=== PATIENT | male | born 1995 | race Caucasian/White ===

== ENCOUNTER 2019-05-27 07:01 | Day surgery (SDC) | payer OTHER ==
[2019-05-19 13:28] VITALS: BMI 28.3
[~2019-05-27 07:01] MED LIST: HYDROmorphone 0.5 MG/0.5 ML SYRINGE IVP PRN; LACTATED RINGERS 1,000 ML IV SCH; ONDANSETRON 4 MG/2 ML VIAL IVP PRN; Pre Op ABX Message 1 EACH MISC MISCELLANE ONE
--- NOTE | 2019-05-27 07:28 | P.GSHP ---
History of Present Illness H&P Date: 05/27/19 CHIEF COMPLAINT: Neck mass HISTORY OF PRESENT ILLNESS: The patient is a 23 year-old male with history of mass along the left neck. He presents today for surgical excision. PAST MEDICAL HISTORY: Please see list. PAST SURGICAL HISTORY: Please see list. MEDICATIONS: Please see list. ALLERGIES: Please see list. SOCIAL HISTORY: No illicit drug use FAMILY HISTORY: No reports of Crohn disease or ulcerative colitis. REVIEW OF ORGAN SYSTEMS: CONSTITUTIONAL: No reports of fevers or chills. GI: Denies any blood in stools or constipation. PHYSICAL EXAM: VITAL SIGNS: Stable SKIN: Well perfused. Good skin turgor. 2 cm lesion overlying the left neck Musculoskeletal: No clubbing cyanosis or edema GENERAL: Well developed and in no acute distress. Pleasant. HEENT: No sclera icterus. Extraocular movements grossly intact. Moist buccal mucosa. Head is atraumatic, normocephalic. Hears conversational speech. No nasal drainage. NECK: Supple without lymphadenopathy. No JV distention. CHEST: Non-labored respirations and equal bilateral excursions. CARDIOVASCULAR: Regular rate and rhythm. Palpable 2+ radial pulses. ABDOMEN: Soft. Non-tender. Nondistended. NEUROLOGIC: No focal or lateralizing signs. PSYCH: Appropriate affect. Alert and oriented to person, place and time. ASSESSMENT: 1. Left neck mass PLAN: 1. Will proceed of excision of left neck mass 2. DVT prophylaxis. 3. Antibiotic prophylaxis. 4. Time of recovery, at least one week. Past Medical History Past Medical History: Hypertension, Osteoarthritis (OA) Additional Past Medical History / Comment(s): ABDOMINAL HERNIA History of Any Multi-Drug Resistant Organisms: None Reported Past Surgical History: Ear Surgery, Hernia Repair Additional Past Surgical History / Comment(s): EAR TUBES A CHILD, WISDOM TEETH. Past Anesthesia/Blood Transfusion Reactions: Motion Sickness Past Psychological History: No Psychological Hx Reported Smoking Status: Current every day smoker Past Alcohol Use History: Occasional Additional Past Alcohol Use History / Comment(s): Has been smoking 8 yrs, 1 PPD. Past Drug Use History: None Reported - Past Family History Mother Family Medical History: No Reported History Medications and Allergies Home Medications Medication Instructions Recorded Confirmed Type Ibuprofen [Motrin Ib] 400 mg PO Q6H PRN 05/19/19 05/19/19 History Lisinopril [Zestril] 10 mg PO DAILY 05/19/19 05/27/19 History Allergies Allergy/AdvReac Type Severity Reaction Status Date / Time No Known Allergies Allergy Verified 05/19/19 13:29
[2019-05-27] MEDS ORDERED: LIDOCAINE 1% 20 ML VIAL (10MG/ML) FOR IV START INTRADERMA ONE (07:32)
[2019-05-27] MEDS ORDERED: PROPOFOL 10 MG/ML 20 ML VIAL IV ONE (07:52)
[2019-05-27] MEDS ORDERED: MIDAZOLAM 2 MG/2 ML VIAL ONE (07:52)
[2019-05-27] MEDS ORDERED: KETAMINE 10 MG/ML 20 ML VIAL ONE (07:52)
[2019-05-27] MEDS ORDERED: LIDOCAINE 1% INJ 10MG/ML (20 ML MDV) ONE (07:52)
[2019-05-27] MEDS ORDERED: fentaNYL (PF) 50 MCG/ML 2 ML AMP ONE (07:52)
[2019-05-27] MEDS ORDERED: SODIUM CHLORIDE 0.9% 50 ML with ceFAZolin 2,000 MG IV ONE ×2 (08:14)
[2019-05-27] MEDS ORDERED: LIDOCAINE 1%-EPI 1:100,000 20 ML VIAL SQ ONE (08:22)
--- NOTE | 2019-05-27 09:08 | P.OP ---
Date of Procedure: 05/27/19 Description of Procedure: SURGEON: IVETH FRANKS MD [employer]PATCHER SERVICE OR WORK: None. PREOPERATIVE DIAGNOSES: 1. Left posterior neck mass, 5 cm 2. Hypertensive heart disease 3. Tobacco abuse POSTOPERATIVE DIAGNOSES: 1. Deep subcutaneous to fascia left posterior neck mass, 5 x 2 cm 2. Hypertensive heart disease 3. Tobacco abuse PROCEDURES PERFORMED: 1. Excision of deep subcutaneous to fascia posterior left neck mass, 5 x 2 cm 2. Intermediate closure left posterior shoulder incision, 6 -cm Anesthesia: GETA, local Estimated Blood Loss (ml): 10 Pathology: other (neck mass) Condition: stable Disposition: same day COMPLICATIONS: None. FINDINGS: 1. Complex solid mass left posterior neck deep subcutaneous to the fascia, 5 x 2 cm INDICATIONS: The patient is a 23-year-old male who presents with symptomatic left posterior neck tumor. Benefits and risks of surgical intervention were described including bleeding, infection. Informed consent was obtained. DESCRIPTION OR PROCEDURE: In the preoperative area, the area of concern was marked with indelible marker. Patient was brought into the operating room. After general induction, his neck was turned to the right shoulder. The left neck and left shoulder were prepped and draped in a standard sterile fashion with ChloraPrep. Timeout protocol was confirmed with the surgical team regarding the patient's name, procedure to be performed including preoperative medications. DVT prophylaxis was confirmed with SCDs. A field block was placed of the left shoulder. At the neck, the mass was measured and a transverse elliptical 5 x 2 cm posterior incision made incorporating the entirety of the mass using #15 blade. Electro-Bovie cautery including sharp dissection was used to circumferential dissect the tumor that extended into the fascia of the left neck at the posterior triangle. Dissection extended into the fascia. The tumor was removed in total. Hemostasis was excellent. 3-0 Vicryl was placed for the deep subcutaneous tissue followed by 4-0 Monocryl for the dermis in a running subcuticular fashion. The skin was cleansed and Exofin tape with liquid was applied. The incision was covered with Optifoam dressing. Local anesthetic was placed. At the end of the procedure, needle, sponge, and instrument count was verified correct by director medical surgical. Operative findings was shared with the patient's family who were pleased with the level of care. Plan - Discharge Summary Discharge Rx Participant: No New Discharge Prescriptions: New Ibuprofen [Motrin] 600 mg PO Q8HR PRN #30 tab PRN Reason: Pain Acetaminophen Tab [Tylenol Tab] 500 mg PO Q6H PRN #30 tablet PRN Reason: Pain No Action Lisinopril [Zestril] 10 mg PO DAILY Ibuprofen [Motrin Ib] 400 mg PO Q6H PRN PRN Reason: Pain Discharge Medication List Ibuprofen [Motrin Ib] 400 mg PO Q6H PRN 05/19/19 [History] Lisinopril [Zestril] 10 mg PO DAILY 05/19/19 [History] Acetaminophen Tab [Tylenol Tab] 500 mg PO Q6H PRN #30 tablet 05/27/19 [Rx] Ibuprofen [Motrin] 600 mg PO Q8HR PRN #30 tab 05/27/19 [Rx] Follow up Appointment(s)/Referral(s): Iveth Franks MD [STAFF PHYSICIAN] - 06/01/19 Patient Instructions/Handouts: Excision of Skin Lesion (DC) Activity/Diet/Wound Care/Special Instructions: DO NOT REMOVE DRESSING. KEEP DRESSING DRY. Apply ice to incision for swelling and pain. Discharge Disposition: HOME SELF-CARE
[2019-05-27 09:09] VITALS: TEMP 96.9
[2019-05-27 09:30] VITALS: RESP 18
[2019-05-27 09:45] VITALS: BP 152/92; PULSE 79
== END 2019-05-27 10:01 | disposition home or self-care (01) ==
LOC: OR 07:01
PROVIDERS: ATTEND Surgery Plastic and Reconstructive Surgery
DX: L72.0 Epidermal cyst (principal); I11.9 Hypertensive heart disease without heart failure; F17.210 Nicotine dependence, cigarettes, uncomplicated; M19.90 Unspecified osteoarthritis, unspecified site; K08.89 Other specified disorders of teeth and supporting structures; Z98.890 Other specified postprocedural states; Z87.898 Personal history of other specified conditions; Z79.1 Long term (current) use of non-steroidal anti-inflammatories (NSAID); Z79.899 Other long term (current) drug therapy
CPT/HCPCS: 11426; J2250; J2405; J0690; J2001; J3010; J2704; 88304

== ENCOUNTER 2019-07-19 04:46 | Emergency (ER) | payer OTHER ==
[2019-07-19 05:04] VITALS: RESP 18
[2019-07-19 05:21] LABS: Basophils # (A) 0.1 k/uL (0-0.2); Basophils % (A) 0 %; Eosinophils # (A) 0.2 k/uL (0-0.7); Eosinophils % (A) 1 %; HCT 38.9 % (39.0-53.0); HGB 12.5 gm/dL (13.0-17.5); Lymphocytes # (A) 2.3 k/uL (1.0-4.8); Lymphocytes % (A) 14 %; MCH 28.2 pg (25.0-35.0); MCHC 32.3 g/dL (31.0-37.0); MCV 87.3 fL (80.0-100.0); Mean Platelet Volume 7.8; Monocytes # (A) 1.1 k/uL (0-1.0); Monocytes % (A) 6 %; Neutrophils # (A) 13.1 k/uL (1.3-7.7); Neutrophils % (A) 77 %; Platelet Count 392 k/uL (150-450); RBC 4.45 m/uL (4.30-5.90); RDW 12.3 % (11.5-15.5); WBC 16.9 k/uL (3.8-10.6)
[2019-07-19 05:32] LABS: ALT 45 U/L (4-49); AST 21 U/L (17-59); African American GFR (CKD) >90 (>60 ml/min/1.73 sqM); Albumin 4.5 g/dL (3.5-5.0); Alkaline Phosphatase 115 U/L (38-126); Anion Gap 11 mmol/L; Blood Urea Nitrogen 17 mg/dL (9-20); Calcium 9.8 mg/dL (8.4-10.2); Carbon Dioxide 22 mmol/L (22-30); Chloride 105 mmol/L (98-107); Glucose 104 mg/dL (74-99); Magnesium 2.2 mg/dL (1.6-2.3); Non-African American GFR(CKD) >90 (>60 ml/min/1.73 sqM); Potassium 4.4 mmol/L (3.5-5.1); Sodium 138 mmol/L (137-145); Total Bilirubin 0.6 mg/dL (0.2-1.3)
[2019-07-19 05:37] LABS: Partial Thromboplastin Time 26.1 sec (22.0-30.0)
--- NOTE | 2019-07-19 05:41 | XR ---
EXAMINATION TYPE: XR chest 2V DATE OF EXAM: 07/19/2019 COMPARISON: 02/19/2016 HISTORY: Chest pain TECHNIQUE: 2 views FINDINGS: Heart is normal. Lungs are clear. Diaphragm is normal. Bony thorax appears normal. IMPRESSION: Normal chest. No change.
[2019-07-19 05:44] LABS: D-Dimer 1.73 mg/L FEU (<0.60)
--- NOTE | 2019-07-19 06:28 | CT ---
EXAMINATION TYPE: CT chest angio for PE DATE OF EXAM: 07/19/2019 COMPARISON: None HISTORY: PLeuritic pain CT DLP: 510.9 mGycm Automated exposure control for dose reduction was used. CONTRAST: Performed with IV Contrast, patient injected with 100 mL of Isovue 370. There are 3-D post processed images. The lungs are clear of infiltrate. There is no evidence of a pulmonary mass. There is no pleural effu tracie. Heart size is normal. There is small pericardial effusion. There is no mediastinal adenopathy. Thoracic aorta is intact. There is no aneurysm or dissection. There is normal contrast opacification of the pulmonary arteries. I see no filling defect. The thorac ic spine is intact. I see no bony destructive process. Sternum is intact. IMPRESSION: No evidence of pulmonary embolism. Mild pericardial effusion. No evidence of any significant lung dis ease. There is minimal pleural thickening left posterior lung base.
[2019-07-19 06:47] VITALS: BP 140/76; PULSE 80; TEMP 97.6
--- NOTE | 2019-07-19 07:16 | ED ---
Chest Pain HPI - General Chief Complaint: Chest Pain Stated Complaint: Chest Pain Time Seen by Provider: 07/19/19 04:55 Source: patient, EMS Mode of arrival: ambulatory Limitations: no limitations - History of Present Illness Initial Comments: Hernan is a 23-year-old male presents the ER today for evaluation of left-sided chest pain that is worse with deep inspiration. Pain is not worse with lying flat or sitting up. Pain developed earlier in the day and has progressively worsened and it him from being able to sleep which prompted him to the ER for evaluation. Patient has no personal history of cardiac disease. No family history of early cardiac disease. No history of hypertension or hyperlipidemia. He is a smoker. - Related Data Home Medications Medication Instructions Recorded Confirmed Ibuprofen [Motrin Ib] 400 mg PO Q6H PRN 05/19/19 05/19/19 Lisinopril [Zestril] 10 mg PO DAILY 05/19/19 05/27/19 Previous Rx's Medication Instructions Recorded Acetaminophen Tab [Tylenol Tab] 500 mg PO Q6H PRN #30 tablet 05/27/19 Ibuprofen [Motrin] 600 mg PO Q8HR PRN #30 tab 05/27/19 Ibuprofen [Motrin] 600 mg PO Q8HR PRN #30 tab 07/19/19 Allergies Allergy/AdvReac Type Severity Reaction Status Date / Time No Known Allergies Allergy Verified 07/19/19 05:04 Review of Systems ROS Statement: Those systems with pertinent positive or pertinent negative responses have been documented in the HPI. ROS Other: All systems not noted in ROS Statement are negative. EKG Findings - EKG Comments: EKG Findings:: EKG was obtained due to complaint of chest pain, EKG obtained at 4:50 AM, rate is 60 rhythm sinus is normal axis, normal intervals, MT 144, corrected 8, QTC is 420. There is no acute ST elevations or depressions no evidence of acute ischemia or infarction. Past Medical History Past Medical History: Hypertension, Osteoarthritis (OA) Additional Past Medical History / Comment(s): ABDOMINAL HERNIA History of Any Multi-Drug Resistant Organisms: None Reported Past Surgical History: Ear Surgery, Hernia Repair Additional Past Surgical History / Comment(s): EAR TUBES A CHILD, WISDOM TEETH, hypospadias as child, Past Anesthesia/Blood Transfusion Reactions: Motion Sickness Past Psychological History: No Psychological Hx Reported Smoking Status: Current every day smoker Past Alcohol Use History: Occasional Past Drug Use History: None Reported - Past Family History Mother Family Medical History: No Reported History General Exam - General Exam Comments Initial Comments: Physical Exam GENERAL: Patient is well-developed and well-nourished. Patient is nontoxic and well- hydrated and is in no distress. HENT: Normocephalic, Atraumatic. EYES: PERRL, EOMI PULMONARY: Unlabored respirations. No audible rales rhonchi or wheezing was noted. CARDIOVASCULAR: There is a regular rate and rhythm without any murmurs gallops or rubs. ABDOMEN: Soft and nontender with normal bowel sounds. SKIN: Skin is clear with no lesions or rashes and otherwise unremarkable. : Deferred NEUROLOGIC: Patient is alert and oriented x3. Moving all extremities spontaneously MUSCULOSKELETAL: Normal extremities with adequate strength and full range of motion. No lower extremity swelling or edema. No calf tenderness. PSYCHIATRIC: Normal psychiatric evaluation. Limitations: no limitations Course Vital Signs 07/19/19 07/19/19 04:50 06:45 Temperature 98.0 F 97.6 F Pulse Rate 67 80 Respiratory 18 18 Rate Blood Pressure 141/82 140/76 O2 Sat by Pulse 99 100 Oximetry Chest Pain MDM - MDM She was seen and evaluated history was obtained from the patient this is an atypical pleuritic like chest pain, cardiac workup including EKG chest x-ray troponins and d-dimer were ordered. Chest x-ray EKG and troponin were unremarkable d-dimer was elevated a CT was ordered. CT results showed no signs of pulmonary embolism however there is evidence of pleural thickening consistent with the pleurisy-type picture. These results were discussed with patient. Patient reports a history of pleurisy in the past we'll treat symptomatically with high-dose NSAIDs. Follow-up patient with primary care. All questions pertaining care were answered return parameters discussed patient discharged home in stable condition. No evidence of ACS, pericarditis, myocarditis, pulmonary embolism, pneumothorax, pneumonia, Zoster, or esophageal perforation. Historically not abrupt in onset, tearing or ripping, pulses symmetric, no evidence of aortic dissection. Disposition Clinical Impression: Atypical chest pain, Pleurisy Disposition: HOME SELF-CARE Condition: Stable Instructions (If sedation given, give patient instructions): Pleurisy (DC) Prescriptions: Ibuprofen [Motrin] 600 mg PO Q8HR PRN #30 tab PRN Reason: Pain Is patient prescribed a controlled substance at d/c from ED?: No Referrals: Vlad Queen MD [Primary Care Provider] - 1-2 days
== END 2019-07-19 06:47 | disposition home or self-care (01) ==
LOC: EC 04:46
DX: R07.89 Other chest pain (principal); R09.1 Pleurisy; R79.1 Abnormal coagulation profile; R91.8 Other nonspecific abnormal finding of lung field; I10 Essential (primary) hypertension; M19.90 Unspecified osteoarthritis, unspecified site; F17.200 Nicotine dependence, unspecified, uncomplicated; Z79.899 Other long term (current) drug therapy
CPT/HCPCS: 36415; 85379; 83880; 80053; 83735; 84484; 85025; 85610; 85730; 71046; 71275; 99285; Q9967

== ENCOUNTER 2021-01-08 11:36 | Emergency (ER) | payer OTHER ==
[2021-01-08 11:48] VITALS: BP 166/91; PULSE 80; RESP 17; TEMP 98.9
[2021-01-08] MEDS ORDERED: ORPHENADRINE 30 MG/ML 2 ML VIAL IM STA (12:17)
[2021-01-08] MEDS ORDERED: KETOROLAC 15 MG/ML 1 ML VIAL IM STA (12:17)
--- NOTE | 2021-01-08 12:39 | ED ---
General Adult HPI - General Chief complaint: Back Pain/Injury Stated complaint: back injury Time Seen by Provider: 01/08/21 12:00 Source: patient, RN notes reviewed, old records reviewed Mode of arrival: ambulatory Limitations: no limitations - History of Present Illness Initial comments: This is a 25-year-old male who presents to the emergency department complaining of bilateral mid back pain. 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 Patient states she was doing a lot of lifting and twisting and today the back hurts particularly when he twists or bends. Patient states is no numbness or weakness. Patient states there is no central back pain. Patient denies any blunt trauma or injury to that area. 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 Patient denies any fever or chills patient denies any difficulty breathing shortest breath per patient denies any dysuria hematuria urinary frequency. - Related Data Home Medications Medication Instructions Recorded Confirmed Ibuprofen [Motrin Ib] 400 mg PO Q6H PRN 05/19/19 05/19/19 lisinopriL [Zestril] 10 mg PO DAILY 05/19/19 05/27/19 Previous Rx's Medication Instructions Recorded Acetaminophen Tab [Tylenol Tab] 500 mg PO Q6H PRN #30 tablet 05/27/19 Ibuprofen [Motrin] 600 mg PO Q8HR PRN #30 tab 05/27/19 Ibuprofen [Motrin] 600 mg PO Q8HR PRN #30 tab 07/19/19 Cyclobenzaprine [Flexeril] 10 mg PO TID #20 tab 01/08/21 Ketorolac [Toradol] 10 mg PO Q6HR #15 tab 01/08/21 Allergies Allergy/AdvReac Type Severity Reaction Status Date / Time No Known Allergies Allergy Verified 01/08/21 11:48 Review of Systems ROS Statement: Those systems with pertinent positive or pertinent negative responses have been documented in the HPI. ROS Other: All systems not noted in ROS Statement are negative. Past Medical History Past Medical History: Hypertension, Osteoarthritis (OA) Additional Past Medical History / Comment(s): ABDOMINAL HERNIA History of Any Multi-Drug Resistant Organisms: None Reported Past Surgical History: Ear Surgery, Hernia Repair Additional Past Surgical History / Comment(s): EAR TUBES A CHILD, WISDOM TEETH, hypospadias as child, Past Anesthesia/Blood Transfusion Reactions: Motion Sickness Past Psychological History: Anxiety Smoking Status: Current every day smoker Past Alcohol Use History: Occasional Past Drug Use History: None Reported - Past Family History Mother Family Medical History: No Reported History General Exam - General Exam Comments Initial Comments: GENERAL: Patient is well-developed and well-nourished. Patient is nontoxic and well- hydrated and is in mild distress. ENT: Neck is soft and supple. No significant lymphadenopathy is noted. Oropharynx is clear. Moist mucous membranes. Neck has full range of motion without eliciting any pain. EYES: The sclera were anicteric and conjunctiva were pink and moist. Extraocular movements were intact and pupils were equal round and reactive to light. Eyelids were unremarkable. PULMONARY: Unlabored respirations. Good breath sounds bilaterally. No audible rales rhonchi or wheezing was noted. CARDIOVASCULAR: There is a regular rate and rhythm without any murmurs gallops or rubs. SKIN: Skin is clear with no lesions or rashes and otherwise unremarkable. NEUROLOGIC: Patient is alert and oriented x3. Cranial nerves II through XII are grossly intact. Motor and sensory are also intact. Normal speech, volume and content. Symmetrical smile. MUSCULOSKELETAL: Normal extremities with adequate strength and full range of motion. Patient is tender in the paraspinous muscles in the mid back bilaterally patient has no spinous process tenderness. Patient has no numbness or weakness. LYMPHATICS: No significant lymphadenopathy is noted PSYCHIATRIC: Normal psychiatric evaluation. Limitations: no limitations Course Vital Signs 01/08/21 11:43 Temperature 98.9 F Pulse Rate 80 Respiratory 17 Rate Blood Pressure 166/91 O2 Sat by Pulse 99 Oximetry Disposition Clinical Impression: Mechanical back pain Disposition: HOME SELF-CARE Condition: Good Instructions (If sedation given, give patient instructions): Back Pain (ED) Additional Instructions: Did not use Flexeril and drive or operate any heavy machinery. Prescriptions: Cyclobenzaprine [Flexeril] 10 mg PO TID #20 tab Ketorolac [Toradol] 10 mg PO Q6HR #15 tab Is patient prescribed a controlled substance at d/c from ED?: No Referrals: Vlad Queen MD [Primary Care Provider] - 1-2 days Time of Disposition: 12:39
== END 2021-01-08 12:53 | disposition home or self-care (01) ==
LOC: EC 11:36
DX: M54.9 Dorsalgia, unspecified (principal); I10 Essential (primary) hypertension; F17.200 Nicotine dependence, unspecified, uncomplicated; Z79.899 Other long term (current) drug therapy; X50.0XXA Overexertion from strenuous movement or load, initial encounter; Y92.009 Unspecified place in unspecified non-institutional (private) residence as the place of occurrence of the external cause
CPT/HCPCS: 99283; 96372 ×2; J2360; J1885

== ENCOUNTER 2021-06-03 09:34 | Emergency (ER) | payer OTHER ==
[2021-06-03 09:45] VITALS: RESP 18; TEMP 98.4
--- NOTE | 2021-06-03 10:10 | XR ---
EXAMINATION TYPE: XR chest 2V DATE OF EXAM: 06/03/2021 9:57 AM COMPARISON:Chest radiographs from 07/19/2019. CLINICAL INDICATION:Male, 25 years old with history of SOB; TECHNIQUE: Frontal and lateral views of the chest. FINDINGS: Lungs/Pleura: There is no evidence of pleural effusion, focal consolidation, or pneumothorax. Pulmonary vascularity: Unremarkable. Heart/mediastinum: Cardiomediastinal silhouette is unremarkable. Musculoskeletal: No acute osseous pathology. IMPRESSION: No acute cardiopulmonary disease/process.
[2021-06-03] MEDS ORDERED: IBUPROFEN 600 MG TAB PO STA (10:37)
[2021-06-03] MEDS ORDERED: ACETAMINOPHEN TAB 500 MG TAB PO STA (10:37)
--- NOTE | 2021-06-03 10:42 | ED ---
General Adult HPI - General Chief complaint: Upper Respiratory Infection Stated complaint: Covid exposure/symptoms Time Seen by Provider: 06/03/21 09:46 Source: patient Mode of arrival: ambulatory Limitations: no limitations - History of Present Illness Initial comments: 25-year-old male with a past medical history of hypertension presents to the emergency room for a chief complaint of COVID-19 exposure. Patient states he was working with a coworker all week to have had COVID-19. Patient states over the past several days he has not felt well. States he has had a cough and congestion. He has also had body aches and a headache. States his thermometer has been broken but he feels febrile. No significant shortness of breath. No chest pain. pt is unvaccinated for COVID-19. Patient has no other complaints at this time including shortness of breath, chest pain, abdominal pain, nausea or vomiting, headache, or visual changes. - Related Data Home Medications Medication Instructions Recorded Confirmed Ibuprofen [Motrin Ib] 400 mg PO Q6H PRN 05/19/19 05/19/19 lisinopriL [Zestril] 10 mg PO DAILY 05/19/19 05/27/19 Previous Rx's Medication Instructions Recorded Acetaminophen Tab [Tylenol Tab] 500 mg PO Q6H PRN #30 tablet 05/27/19 Ibuprofen [Motrin] 600 mg PO Q8HR PRN #30 tab 05/27/19 Ibuprofen [Motrin] 600 mg PO Q8HR PRN #30 tab 07/19/19 Cyclobenzaprine [Flexeril] 10 mg PO TID #20 tab 01/08/21 Ketorolac [Toradol] 10 mg PO Q6HR #15 tab 01/08/21 Allergies Allergy/AdvReac Type Severity Reaction Status Date / Time No Known Allergies Allergy Verified 06/03/21 09:45 Review of Systems ROS Statement: Those systems with pertinent positive or pertinent negative responses have been documented in the HPI. ROS Other: All systems not noted in ROS Statement are negative. Past Medical History Past Medical History: Hypertension, Osteoarthritis (OA) Additional Past Medical History / Comment(s): ABDOMINAL HERNIA History of Any Multi-Drug Resistant Organisms: None Reported Past Surgical History: Ear Surgery, Hernia Repair Additional Past Surgical History / Comment(s): EAR TUBES A CHILD, WISDOM TEETH, hypospadias as child, Past Anesthesia/Blood Transfusion Reactions: Motion Sickness Past Psychological History: Anxiety Smoking Status: Current every day smoker Past Alcohol Use History: Occasional Past Drug Use History: None Reported - Past Family History Mother Family Medical History: No Reported History General Exam Limitations: no limitations General appearance: alert, in no apparent distress Head exam: Present: atraumatic Eye exam: Present: normal appearance, PERRL, EOMI. Absent: scleral icterus, conjunctival injection ENT exam: Present: normal exam, mucous membranes moist Neck exam: Present: normal inspection, full ROM. Absent: tenderness Respiratory exam: Present: normal lung sounds bilaterally. Absent: respiratory distress, wheezes Cardiovascular Exam: Present: regular rate, normal rhythm, normal heart sounds GI/Abdominal exam: Present: soft, normal bowel sounds. Absent: distended, tenderness Neurological exam: Present: alert Course Vital Signs 06/03/21 09:42 Temperature 98.4 F Pulse Rate 104 H Respiratory 18 Rate Blood Pressure 147/103 O2 Sat by Pulse 98 Oximetry Medical Decision Making - Medical Decision Making vitals are stable. Patient is well appearing. Chest x-ray was unremarkable however, COVID-19 was detected. Discussed antibody infusion which patient did prefer to to have. Patient will be discharged home with strict return parameters. He will follow up with his primary care doctor. - Lab Data Lab Results 06/03/21 Range/Units 09:46 Coronavirus (PCR) Detected A (Not Detectd) Disposition Clinical Impression: COVID-19 Disposition: HOME SELF-CARE Condition: Good Instructions (If sedation given, give patient instructions): Coronavirus Disease 2019 (COVID-19) Additional Instructions: Take [id number] vitamin C, vitamin D, and zinc. Drink plenty of fluids. Quarantine for 10 days. Return to the emergency room for any worsening symptoms such as worsening shortness of breath. Otherwise follow-up with primary care. Is patient prescribed a controlled substance at d/c from ED?: No Referrals: Vlad Queen MD [Primary Care Provider] - 1-2 days Time of Disposition: 10:41
[2021-06-03] MEDS ORDERED: BAMLANIVIMAB (EUA) 700 MG, ETESEVIMAB (EUA) 1,400 MG in SODIUM CHLORIDE 0.9% 50 ML IVPB ONE (11:30)
[2021-06-03] MEDS ORDERED: SODIUM CHLORIDE 0.9% 50 ML IVPB ONE (11:30)
[2021-06-03 13:36] VITALS: BP 132/84; PULSE 89
== END 2021-06-03 13:36 | disposition home or self-care (01) ==
LOC: EC 09:34
DX: U07.1 COVID-19 (principal); I10 Essential (primary) hypertension; F17.200 Nicotine dependence, unspecified, uncomplicated; Z79.899 Other long term (current) drug therapy
CPT/HCPCS: 87635; 71046; 99284; J3490

== ENCOUNTER 2021-08-15 09:52 | Emergency (ER) | payer OTHER ==
[2021-08-15 10:39] VITALS: RESP 18; TEMP 97
[2021-08-15 11:30] LABS: Basophils % (A) 0 %; Eosinophils # (A) 0.2 k/uL (0-0.7); Eosinophils % (A) 3 %; HCT 43.8 % (39.0-53.0); HGB 15.1 gm/dL (13.0-17.5); Lymphocytes # (A) 2.2 k/uL (1.0-4.8); Lymphocytes % (A) 28 %; MCH 30.4 pg (25.0-35.0); MCHC 34.5 g/dL (31.0-37.0); MCV 87.9 fL (80.0-100.0); Mean Platelet Volume 8.8; Monocytes # (A) 0.7 k/uL (0-1.0); Monocytes % (A) 9 %; Neutrophils # (A) 4.4 k/uL (1.3-7.7); Neutrophils % (A) 58 %; Platelet Count 270 k/uL (150-450); RBC 4.98 m/uL (4.30-5.90); RDW 12.1 % (11.5-15.5); WBC 7.7 k/uL (3.8-10.6)
[2021-08-15 11:40] LABS: ALT 26 U/L (4-49); AST 24 U/L (17-59); African American GFR (CKD) >90 (>60 ml/min/1.73 sqM); Albumin 4.7 g/dL (3.5-5.0); Alkaline Phosphatase 84 U/L (38-126); Anion Gap 11 mmol/L; Blood Urea Nitrogen 14 mg/dL (9-20); Calcium 9.9 mg/dL (8.4-10.2); Carbon Dioxide 23 mmol/L (22-30); Chloride 103 mmol/L (98-107); Glucose 141 mg/dL (74-99); Magnesium 1.9 mg/dL (1.6-2.3); Non-African American GFR(CKD) >90 (>60 ml/min/1.73 sqM); Potassium 3.8 mmol/L (3.5-5.1); Sodium 137 mmol/L (137-145); Total Bilirubin 0.5 mg/dL (0.2-1.3); Total Protein 8.1 g/dL (6.3-8.2)
[2021-08-15 11:54] LABS: INR 0.9 (<1.2); Partial Thromboplastin Time 27.8 sec (22.0-30.0); Prothrombin Time 10.1 sec (9.0-12.0)
--- NOTE | 2021-08-15 11:59 | XR ---
EXAMINATION TYPE: XR chest 2V DATE OF EXAM: 08/15/2021 COMPARISON: NONE TECHNIQUE: PA and lateral views submitted. HISTORY: Chest pain FINDINGS: The lungs are clear and there is no pneumothorax, pleural effusion, or focal pneumonia. Heart size normal. No overt failure. IMPRESSION: 1. No acute process.
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
[2021-08-15 14:03] VITALS: BP 158/99; PULSE 77
== END 2021-08-15 14:03 | disposition home or self-care (01) ==
LOC: EC 09:52
DX: I20.9 Angina pectoris, unspecified (principal); I10 Essential (primary) hypertension; F17.200 Nicotine dependence, unspecified, uncomplicated; R07.89 Other chest pain
CPT/HCPCS: 36415; 71046; 80053; 83735; 84484; 85025; 85610; 85730; 93005; 99285

== ENCOUNTER 2022-06-04 08:17 | Emergency (ER) | payer OTHER ==
[2022-06-04 08:36] VITALS: BP 147/87; PULSE 76; RESP 20; TEMP 98.3
[2022-06-04] MEDS ORDERED: FAMOTIDINE 20 MG TAB PO STA (08:43)
[2022-06-04] MEDS ORDERED: KETOROLAC 15 MG/ML 1 ML VIAL IVP STA (08:43)
[2022-06-04] MEDS ORDERED: ONDANSETRON 4 MG/2 ML VIAL IVP STA (08:43)
[2022-06-04] MEDS ORDERED: SODIUM CHLORIDE 0.9% 1,000 ML IV ONE (08:44)
--- NOTE | 2022-06-04 08:48 | ED ---
General Adult HPI - General Chief complaint: Abdominal Pain Stated complaint: stomach pain Time Seen by Provider: 06/04/22 08:37 Source: patient, RN notes reviewed Mode of arrival: ambulatory Limitations: no limitations - History of Present Illness Initial comments: 6-year-old male with no significant past medical history coming into the emergency room in for abdominal pain that started on 06/01/2022. He describes the pain as sharp that waxes and wanes in his epigastric region that is generalized. He complains of accompanying symptoms of nausea, vomiting, diarrhea. He has tried taking Pepto-Bismol for his symptoms for which he notes his stools have been black. Last BM was this morning. He denies fever, chills, dysuria, hematemesis, hematochezia, melena. He denies history cholecystectomy/appendectomy. - Related Data Home Medications Medication Instructions Recorded Confirmed ALPRAZolam [Xanax] 0.25 mg PO Q6H PRN 06/03/21 08/15/21 Lisinopril-Hctz 10-12.5 mg 1 tab PO DAILY 06/03/21 08/15/21 [Zestoretic 10-12.5] Sertraline HCl [Zoloft] 200 mg PO DAILY 06/03/21 08/15/21 Fluticasone Nasal [place] [Flonase 2 spray EA NOSTRIL HS PRN 08/15/21 08/15/21 Nasal [place]] Ibuprofen [Motrin] 600 mg PO TID PRN 08/15/21 08/15/21 Previous Rx's Medication Instructions Recorded Ondansetron Odt [Zofran Odt] 4 mg PO Q8HR PRN #10 tab 06/04/22 Allergies Allergy/AdvReac Type Severity Reaction Status Date / Time No Known Allergies Allergy Verified 06/04/22 08:36 Review of Systems ROS Statement: Those systems with pertinent positive or pertinent negative responses have been documented in the HPI. ROS Other: All systems not noted in ROS Statement are negative. Past Medical History Past Medical History: Hypertension, Osteoarthritis (OA) Additional Past Medical History / Comment(s): ABDOMINAL HERNIA History of Any Multi-Drug Resistant Organisms: None Reported Past Surgical History: Ear Surgery, Hernia Repair Additional Past Surgical History / Comment(s): EAR TUBES A CHILD, WISDOM TEETH, hypospadias as child, Past Anesthesia/Blood Transfusion Reactions: Motion Sickness Past Psychological History: Anxiety Smoking Status: Vaper Past Alcohol Use History: Occasional Past Drug Use History: None Reported - Past Family History Mother Family Medical History: No Reported History General Exam Limitations: no limitations General appearance: alert, in no apparent distress Head exam: Present: atraumatic, normocephalic, normal inspection Eye exam: Present: normal appearance, PERRL, EOMI. Absent: scleral icterus, conjunctival injection, periorbital swelling ENT exam: Present: normal exam Neck exam: Present: normal inspection. Absent: tenderness, meningismus, lymphadenopathy Respiratory exam: Present: normal lung sounds bilaterally. Absent: respiratory distress, wheezes, rales, rhonchi, stridor Cardiovascular Exam: Present: regular rate, normal rhythm, normal heart sounds. Absent: systolic murmur, diastolic murmur, rubs, gallop, clicks GI/Abdominal exam: Present: soft, tenderness (Epigastric, Moreland sign - ), normal bowel sounds. Absent: distended, guarding, rebound, rigid Extremities exam: Present: normal inspection, full ROM, normal capillary refill. Absent: tenderness, pedal edema, joint swelling, calf tenderness Back exam: Present: normal inspection Neurological exam: Present: alert, oriented X3, CN II-XII intact Psychiatric exam: Present: normal affect, normal mood Skin exam: Present: warm, dry, intact, normal color. Absent: rash Course Vital Signs 06/04/22 08:34 Temperature 98.3 F Pulse Rate 76 Respiratory 20 Rate Blood Pressure 147/87 O2 Sat by Pulse 98 Oximetry Medical Decision Making - Medical Decision Making 6-year-old male with no significant past medical history coming into the emergency department for nausea vomiting and abdominal pain. Patient had lab work and imaging performed on the ED. Lab work remarkable for: WBC 6.7, hemoglobin 14.8, lipase 86.I interpreted the following: CT abdomen negative for acute abdominal process. I discussed in detail the results with the patient all questions addressed. Patient was given fluids, Zofran, Pepcid, Toradol with symptomatic relief in the ED. Patient given a prescription for Zofran and discharged in stable condition. Advised to follow up with PCP as needed. He discussed with Dr. Huff - Lab Data Result diagrams: 06/04/22 09:08 12/13/22 09:08 Lab Results 06/04/22 06/04/22 Range/Units 09:08 09:08 WBC 6.7 (3.8-10.6) k/uL RBC 5.15 (4.30-5.90) m/uL Hgb 14.8 (13.0-17.5) gm/dL Hct 42.6 (39.0-53.0) % MCV 82.8 (80.0-100.0) fL MCH 28.7 (25.0-35.0) pg MCHC 34.6 (31.0-37.0) g/dL RDW 12.1 (11.5-15.5) % Plt Count 260 (150-450) k/uL MPV 8.4 Neutrophils % 64 % Lymphocytes % 20 % Monocytes % 10 % Eosinophils % 2 % Basophils % 1 % Neutrophils # 4.2 (1.3-7.7) k/uL Lymphocytes # 1.4 (1.0-4.8) k/uL Monocytes # 0.7 (0-1.0) k/uL Eosinophils # 0.1 (0-0.7) k/uL Basophils # 0.1 (0-0.2) k/uL Sodium 139 (137-145) mmol/L Potassium 3.9 (3.5-5.1) mmol/L Chloride 105 (98-107) mmol/L Carbon Dioxide 24 (22-30) mmol/L Anion Gap 10 mmol/L BUN 11 (9-20) mg/dL Creatinine 0.95 (0.66-1.25) mg/dL Est GFR (CKD-EPI)AfAm >90 (>60 ml/min/1.73 sqM) Est GFR (CKD-EPI)NonAf >90 (>60 ml/min/1.73 sqM) Glucose 95 (74-99) mg/dL Calcium 9.0 (8.4-10.2) mg/dL Total Bilirubin 0.3 (0.2-1.3) mg/dL AST 26 (17-59) U/L ALT 31 (4-49) U/L Alkaline Phosphatase 86 (38-126) U/L Total Protein 7.7 (6.3-8.2) g/dL Albumin 4.6 (3.5-5.0) g/dL Lipase 86 (23-300) U/L Disposition Clinical Impression: Abdominal pain Disposition: HOME SELF-CARE Condition: Stable Instructions (If sedation given, give patient instructions): Abdominal Pain (ED) Additional Instructions: Please return to the ED if worsening symptoms of abdominal pain, nausea, fevers, and hematochezia. Prescriptions: Ondansetron Odt [Zofran Odt] 4 mg PO Q8HR PRN #10 tab PRN Reason: Nausea Is patient prescribed a controlled substance at d/c from ED?: No Referrals: Vlad Queen MD [Primary Care Provider] - 1-2 days
[2022-06-04 09:27] LABS: ALT 31 U/L (4-49); AST 26 U/L (17-59); African American GFR (CKD) >90 (>60 ml/min/1.73 sqM); Albumin 4.6 g/dL (3.5-5.0); Alkaline Phosphatase 86 U/L (38-126); Anion Gap 10 mmol/L; Blood Urea Nitrogen 11 mg/dL (9-20); Carbon Dioxide 24 mmol/L (22-30); Chloride 105 mmol/L (98-107); Glucose 95 mg/dL (74-99); Lipase 86 U/L (23-300); Non-African American GFR(CKD) >90 (>60 ml/min/1.73 sqM); Potassium 3.9 mmol/L (3.5-5.1); Sodium 139 mmol/L (137-145); Total Bilirubin 0.3 mg/dL (0.2-1.3); Total Protein 7.7 g/dL (6.3-8.2)
[2022-06-04 09:32] LABS: Basophils # (A) 0.1 k/uL (0-0.2); Basophils % (A) 1 %; Eosinophils # (A) 0.1 k/uL (0-0.7); Eosinophils % (A) 2 %; HCT 42.6 % (39.0-53.0); HGB 14.8 gm/dL (13.0-17.5); Lymphocytes # (A) 1.4 k/uL (1.0-4.8); Lymphocytes % (A) 20 %; MCH 28.7 pg (25.0-35.0); MCHC 34.6 g/dL (31.0-37.0); MCV 82.8 fL (80.0-100.0); Mean Platelet Volume 8.4; Monocytes # (A) 0.7 k/uL (0-1.0); Monocytes % (A) 10 %; Neutrophils # (A) 4.2 k/uL (1.3-7.7); Neutrophils % (A) 64 %; Platelet Count 260 k/uL (150-450); RBC 5.15 m/uL (4.30-5.90); RDW 12.1 % (11.5-15.5); WBC 6.7 k/uL (3.8-10.6)
--- NOTE | 2022-06-04 09:37 | CT ---
EXAMINATION TYPE: CT abdomen pelvis wo con DATE OF EXAM: 06/04/2022 HISTORY: abdominal pain x [address] DLP: 1080.4 mGycm. Automated Exposure Control for Dose Reduction was Utilized. TECHNIQUE: CT scan of the abdomen and pelvis is performed without oral or IV contrast. COMPARISON: NONE FINDINGS: Within the limitations of a non-contrast study, the following observations are made. LUNG BASES: No significant abnormality is appreciated. LIVER/GB: Liver is overall heterogeneous with a few small subcentimeter hypodense lesions that are to o small to further characterize but presumably benign, for reference right hepatic lobe axial image 3 1 7 mm lesion noted. PANCREAS: No significant abnormality is seen. SPLEEN: No significant abnormality is seen. ADRENALS: No significant abnormality is seen. KIDNEYS: No renal stones or hydronephrosis is seen bilaterally. No intraluminal calculus in the bladd er. BOWEL: Appendix within normal limits for base of cecum on image 57. Possible appendicolith on axial i mage 56. No surrounding inflammatory change. No suspicious small or large bowel dilatation. Stomach p oorly distended and suboptimally evaluated. GENITAL ORGANS: No gross abnormality seen. LYMPH NODES: No greater than 1cm abdominal or pelvic lymph nodes are appreciated. Scattered subcentim eter lymph nodes throughout the mesentery. OSSEOUS STRUCTURES: No significant abnormality is seen. OTHER: No significant additional abnormality is seen. IMPRESSION: No renal stones or hydronephrosis is seen bilaterally. No bowel obstruction. No acute fin dings identified on noncontrast CT.
== END 2022-06-04 10:00 | disposition home or self-care (01) ==
LOC: EC 08:17
DX: R10.13 Epigastric pain (principal); I10 Essential (primary) hypertension; M19.90 Unspecified osteoarthritis, unspecified site; F41.9 Anxiety disorder, unspecified; F17.290 Nicotine dependence, other tobacco product, uncomplicated; Z79.899 Other long term (current) drug therapy; Z79.1 Long term (current) use of non-steroidal anti-inflammatories (NSAID)
CPT/HCPCS: 99284; 96374; 96375; 36415; 80053; 83690; 85025; 74176; J2405; J1885

== ENCOUNTER 2022-10-10 09:32 | Emergency (ER) | payer OTHER ==
[2022-10-10 09:43] VITALS: TEMP 98.6
[2022-10-10] MEDS ORDERED: SODIUM CHLORIDE 0.9% 1,000 ML IV STA (10:23)
[2022-10-10] MEDS ORDERED: KETOROLAC 15 MG/ML 1 ML VIAL IVP STA (10:24)
--- NOTE | 2022-10-10 10:28 | ED ---
General Adult HPI - General Chief complaint: Upper Respiratory Infection Stated complaint: Feel like he is going to pass out Time Seen by Provider: 10/10/22 09:46 Source: patient, family, RN notes reviewed, old records reviewed Mode of arrival: ambulatory Limitations: no limitations - History of Present Illness Initial comments: This is a nontoxic appearing anxious 27 year male that presents hyperventilating to the emergency room with complaints of not feeling well. States fever yesterday with pain in his back today feeling like he is going to pass out. Numbness in both of his hands. States other people at work are sick and he did taken at home Covid test today that was negative. He does vape daily. History of anxiety, hypertension and osteoarthritis. -: days(s) (2) Location: back Severity scale (1-10): 9 Quality: sharp Consistency: constant Improves with: none Associated Symptoms: fever/chills, shortness of breath, other (back pain) Treatments Prior to Arrival: none - Related Data Home Medications Medication Instructions Recorded Confirmed ALPRAZolam [Xanax] 0.25 mg PO Q6H PRN 06/03/21 06/04/22 Lisinopril-Hctz 10-12.5 mg 1 tab PO DAILY 06/03/21 06/04/22 [Zestoretic 10-12.5] Sertraline HCl [Zoloft] 200 mg PO DAILY 06/03/21 06/04/22 Ibuprofen [Motrin Ib] 600 mg PO Q6H PRN 06/04/22 06/04/22 amLODIPine [Norvasc] 5 mg PO DAILY 06/04/22 06/04/22 Previous Rx's Medication Instructions Recorded Ondansetron Odt [Zofran Odt] 4 mg PO Q8HR PRN #10 tab 06/04/22 Allergies Allergy/AdvReac Type Severity Reaction Status Date / Time No Known Allergies Allergy Verified 10/10/22 09:43 Review of Systems ROS Statement: Those systems with pertinent positive or pertinent negative responses have been documented in the HPI. ROS Other: All systems not noted in ROS Statement are negative. Past Medical History Past Medical History: Hypertension, Osteoarthritis (OA) Additional Past Medical History / Comment(s): ABDOMINAL HERNIA History of Any Multi-Drug Resistant Organisms: None Reported Past Surgical History: Ear Surgery, Hernia Repair Additional Past Surgical History / Comment(s): EAR TUBES A CHILD, WISDOM TE ETH, hypospadias as child, Past Anesthesia/Blood Transfusion Reactions: Motion Sickness Past Psychological History: Anxiety Smoking Status: Vaper Past Alcohol Use History: Occasional Past Drug Use History: None Reported - Past Family History Mother Family Medical History: No Reported History General Exam Limitations: no limitations General appearance: alert, in no apparent distress Head exam: Present: atraumatic, normocephalic, normal inspection Eye exam: Present: normal appearance. Absent: scleral icterus, conjunctival injection, periorbital swelling ENT exam: Present: mucous membranes moist Neck exam: Present: full ROM. Absent: tenderness, meningismus Respiratory exam: Present: normal lung sounds bilaterally. Absent: respiratory distress, accessory muscle use Cardiovascular Exam: Present: tachycardia GI/Abdominal exam: Present: soft. Absent: distended, tenderness, guarding, rebound, rigid Extremities exam: Present: normal capillary refill. Absent: tenderness, pedal edema Back exam: Absent: tenderness, CVA tenderness (R), CVA tenderness (L) Neurological exam: Present: alert, oriented X3, normal gait Psychiatric exam: Present: normal affect, normal mood Skin exam: Present: warm, dry, normal color. Absent: cyanosis, diaphoretic, petechiae, pallor Course Vital Signs 10/10/22 10/10/22 10/10/22 09:41 11:15 12:06 Temperature 98.6 F Pulse Rate 115 H 104 H 108 H Respiratory 24 20 20 Rate Blood Pressure 154/82 133/84 127/88 O2 Sat by Pulse 99 100 97 Oximetry 10/10/22 13:05 Temperature Pulse Rate 89 Respiratory 20 Rate Blood Pressure 110/68 O2 Sat by Pulse 98 Oximetry - Reevaluation(s) Reevaluation #1: 10/10/22 12:39 Patient resting on cart states feeling better. Time: 12:39 Medical Decision Making - Medical Decision Making Chest x-ray interpreted by me shows no evidence of focal consolidation, trachea is midline, no evidence of free air. Radiologist interpretation no acute cardiopulmonary disease or process. EKG shows sinus tachycardia with a ventricular rate of 108, [place] interval 0.116, QRS 0.87, QTC 0.35. No concerning change compared to old dated 08/15/2021. D-dimer performed due to patient's sharp back pain with shortness of breath and tachycardia which was negative. Patient is positive for coronavirus. Upon reevaluation patient states he is feeling better after IV fluids Toradol and Dilaudid. He was directed to stop smoking, self quarantine for 5 days from symptom onset. Take vitamin C, vitamin D ,and zinc daily and stay hydrated. Return to the emergency room with any new or concerning symptoms. Patient and family member are agreeable to this plan of care. Case discussed with Dr. Ojeda. Was pt. sent in by a medical professional or institution (, PA, OFFICIAL COURT INTERPRETER, urgent care, hospital, or fci...) When possible be specific @ -No Did you speak to anyone other than the patient for history (EMS, parent, family, police, friend...)? What history was obtained from this source @ -No Did you review nursing and triage notes (agree or disagree)? Why? @ -I reviewed and agree with nursing and triage notes Were old charts reviewed (outside hosp., previous admission, EMS record, old EKG, old radiological studies, urgent care reports/EKG's, fci records)? Report findings @ -Previous EKG as above Differential Diagnosis (chest pain, altered mental status, abdominal pain women, abdominal pain men, vaginal bleeding, weakness, fever, dyspnea, syncope, headache, dizziness, GI bleed, back pain, seizure, CVA, palpatations, mental health, musculoskeletal)? @ -Differential Dyspnea: Coronary syndrome, arrhythmia, tamponade, asthma, COPD, pulmonary embolism, pneumonia, pneumothorax, pulmonary effusion, anaphylaxis, diabetic ketoacidosis, flailed chest, pulmonary contusion, diaphragmatic rupture, anemia, neuromuscular, this is not meant to be an all-inclusive list. EKG interpreted by me (3pts min.). @ -As above X-rays interpreted by me (1pt min.). @ -yes as above CT interpreted by me (1pt min.). @ -None done U/S interpreted by me (1pt. min.). @ -None done What testing was considered but not performed or refused? (CT, X-rays, U/S, labs)? Why? @ -CT was considered however d-dimer negative. Patient's symptoms resolved after IV fluids, Toradol and Dilaudid, positive for coronavirus What meds were considered but not given or refused? Why? @ -Ativan was ordered however the nurse provided patient with Dilaudid with resolution of his symptoms therefore was not given Did you discuss the management of the patient with other professionals (professionals i.e. , PA, OFFICIAL COURT INTERPRETER, lab, RT, psych nurse, director social service, over the horizon targeting supervisor, teacher, compliance officer, case management rn)? Give summary @ -No Was smoking cessation discussed for >3mins.? @ -Yes Was critical care preformed (if so, how long)? @ -No Were there social determinants of health that impacted care today? How? (Homelessness, low income, unemployed, alcoholism, drug addiction, transportation, low edu. Level, literacy, decrease access to med. care, long-term, rehab)? @ -No Was there de-escalation of care discussed even if they declined (Discuss DNR or withdrawal of care, Hospice)? DNR status @ -No What co-morbidities impacted this encounter? (DM, HTN, Smoking, COPD, CAD, Cancer, CVA, ARF, Chemo, Hep., AIDS, mental health diagnosis, sleep apnea, morbid obesity)? @ -Hypertension, anxiety Was patient admitted / discharged? Hospital course, mention meds given and route, prescriptions, significant lab abnormalities, going to OR and other pertinent info. @ -Discharged Undiagnosed new problem with uncertain prognosis? @ -No Drug Therapy requiring intensive monitoring for toxicity (Heparin, Nitro, Insulin, Cardizem)? @ -No Were any procedures done? @ -No Diagnosis/symptom? @ -Coronavirus Acute, or Chronic, or Acute on Chronic? @ -Acute Uncomplicated (without systemic symptoms) or Complicated (systemic symptoms)? @ -Uncomplicated Side effects of treatment? @ -No Exacerbation, Progression, or Severe Exacerbation? @ -No Poses a threat to life or bodily function? How? (Chest pain, [place], [place], pneumonia, PE, COPD, DKA, ARF, appy, cholecystitis, CVA, Diverticulitis, Homicidal, Suicidal, threat to staff... and all critical care pts) @ -No - Lab Data Result diagrams: 10/10/22 10:54 10/10/22 10:54 Lab Results 10/10/22 10/10/22 10/10/22 Range/Units 10:54 10:54 10:54 WBC 7.7 (3.8-10.6) k/uL RBC 4.93 (4.30-5.90) m/uL Hgb 14.1 (13.0-17.5) gm/dL Hct 41.2 (39.0-53.0) % MCV 83.6 (80.0-100.0) fL MCH 28.6 (25.0-35.0) pg MCHC 34.2 (31.0-37.0) g/dL RDW 12.3 (11.5-15.5) % Plt Count 293 (150-450) k/uL MPV 8.1 Neutrophils % 82 % Lymphocytes % 5 % Monocytes % 10 % Eosinophils % 2 % Basophils % 0 % Neutrophils # 6.3 (1.3-7.7) k/uL Lymphocytes # 0.4 L (1.0-4.8) k/uL Monocytes # 0.8 (0-1.0) k/uL Eosinophils # 0.2 (0-0.7) k/uL Basophils # 0.0 (0-0.2) k/uL PT 10.4 (9.0-12.0) sec INR 1.0 (<1.2) APTT 27.3 (22.0-30.0) sec D-Dimer <0.17 (<0.60) mg/L FEU Sodium 137 (137-145) mmol/L Potassium 3.6 (3.5-5.1) mmol/L Chloride 101 (98-107) mmol/L Carbon Dioxide 23 (22-30) mmol/L Anion Gap 13 mmol/L BUN 12 (9-20) mg/dL Creatinine 1.02 (0.66-1.25) mg/dL Est GFR (CKD-EPI)AfAm >90 (>60 ml/min/1.73 sqM) Est GFR (CKD-EPI)NonAf >90 (>60 ml/min/1.73 sqM) Glucose 99 (74-99) mg/dL Plasma Lactic Acid Matt (0.7-2.0) mmol/L Calcium 9.9 (8.4-10.2) mg/dL Magnesium 1.8 (1.6-2.3) mg/dL Total Bilirubin 0.4 (0.2-1.3) mg/dL AST 21 (17-59) U/L ALT 27 (4-49) U/L Alkaline Phosphatase 85 (38-126) U/L Troponin I (0.000-0.034) ng/mL Total Protein 8.2 (6.3-8.2) g/dL Albumin 4.8 (3.5-5.0) g/dL Influenza Type A (PCR) (Not Detectd) Influenza Type B (PCR) (Not Detectd) RSV (PCR) (Not Detectd) SARS-CoV-2 (PCR) (Not Detectd) 10/10/22 10/10/22 10/10/22 Range/Units 10:54 10:54 10:54 WBC (3.8-10.6) k/uL RBC (4.30-5.90) m/uL Hgb (13.0-17.5) gm/dL Hct (39.0-53.0) % MCV (80.0-100.0) fL MCH (25.0-35.0) pg MCHC (31.0-37.0) g/dL RDW (11.5-15.5) % Plt Count (150-450) k/uL MPV Neutrophils % % Lymphocytes % % Monocytes % % Eosinophils % % Basophils % % Neutrophils # (1.3-7.7) k/uL Lymphocytes # (1.0-4.8) k/uL Monocytes # (0-1.0) k/uL Eosinophils # (0-0.7) k/uL Basophils # (0-0.2) k/uL PT (9.0-12.0) sec INR (<1.2) APTT (22.0-30.0) sec D-Dimer (<0.60) mg/L FEU Sodium (137-145) mmol/L Potassium (3.5-5.1) mmol/L Chloride (98-107) mmol/L Carbon Dioxide (22-30) mmol/L Anion Gap mmol/L BUN (9-20) mg/dL Creatinine (0.66-1.25) mg/dL Est GFR (CKD-EPI)AfAm (>60 ml/min/1.73 sqM) Est GFR (CKD-EPI)NonAf (>60 ml/min/1.73 sqM) Glucose (74-99) mg/dL Plasma Lactic Acid Matt 1.7 (0.7-2.0) mmol/L Calcium (8.4-10.2) mg/dL Magnesium (1.6-2.3) mg/dL Total Bilirubin (0.2-1.3) mg/dL AST (17-59) U/L ALT (4-49) U/L Alkaline Phosphatase (38-126) U/L Troponin I <0.012 (0.000-0.034) ng/mL Total Protein (6.3-8.2) g/dL Albumin (3.5-5.0) g/dL Influenza Type A (PCR) Not Detected (Not Detectd) Influenza Type B (PCR) Not Detected (Not Detectd) RSV (PCR) Not Detected (Not Detectd) SARS-CoV-2 (PCR) Detected A (Not Detectd) Disposition Clinical Impression: COVID-19 Disposition: HOME SELF-CARE Condition: Good Instructions (If sedation given, give patient instructions): COVID-19 (Coronavirus Disease 2019) (ED) Additional Instructions: Increase your fluid intake. Tylenol and or Motrin as needed for any fevers, pain or discomfort. Take vitamin C, vitamin D and zinc to improve your immune health. Follow-up with your primary care doctor next week. Return to the emergency room with any new or concerning symptoms Is patient prescribed a controlled substance at d/c from ED?: No Referrals: Vlad Queen MD [Primary Care Provider] - 1-2 days Time of Disposition: 12:38
--- NOTE | 2022-10-10 10:44 | XR ---
EXAMINATION TYPE: XR chest 2V DATE OF EXAM: 10/10/2022 10:40 AM COMPARISON: Chest radiographs from 08/15/2021 TECHNIQUE: XR chest 2V Frontal and lateral views of the chest. CLINICAL INDICATION:Male, 27 years old with history of difficulty breathing; FINDINGS: Lungs/Pleura: There is no evidence of pleural effusion, focal consolidation, or pneumothorax. Pulmonary vascularity: Unremarkable. Heart/mediastinum: Cardiomediastinal silhouette is unremarkable. Musculoskeletal: No acute osseous pathology. IMPRESSION: No acute cardiopulmonary disease/process.
[2022-10-10] MEDS ORDERED: HYDROmorphone 0.5 MG/0.5 ML SYRINGE IVP STA (11:11)
[2022-10-10] MEDS ORDERED: LORazepam 2 MG/ML INJ IV STA ×2 (11:11→11:12)
[2022-10-10 11:16] VITALS: RESP 20
[2022-10-10 11:16] LABS: Basophils % (A) 0 %; Eosinophils # (A) 0.2 k/uL (0-0.7); Eosinophils % (A) 2 %; HCT 41.2 % (39.0-53.0); HGB 14.1 gm/dL (13.0-17.5); Lymphocytes # (A) 0.4 k/uL (1.0-4.8); Lymphocytes % (A) 5 %; MCH 28.6 pg (25.0-35.0); MCHC 34.2 g/dL (31.0-37.0); MCV 83.6 fL (80.0-100.0); Mean Platelet Volume 8.1; Monocytes # (A) 0.8 k/uL (0-1.0); Monocytes % (A) 10 %; Neutrophils # (A) 6.3 k/uL (1.3-7.7); Neutrophils % (A) 82 %; Platelet Count 293 k/uL (150-450); RBC 4.93 m/uL (4.30-5.90); RDW 12.3 % (11.5-15.5); WBC 7.7 k/uL (3.8-10.6)
[2022-10-10 11:24] LABS: ALT 27 U/L (4-49); AST 21 U/L (17-59); African American GFR (CKD) >90 (>60 ml/min/1.73 sqM); Albumin 4.8 g/dL (3.5-5.0); Alkaline Phosphatase 85 U/L (38-126); Anion Gap 13 mmol/L; Blood Urea Nitrogen 12 mg/dL (9-20); Calcium 9.9 mg/dL (8.4-10.2); Carbon Dioxide 23 mmol/L (22-30); Chloride 101 mmol/L (98-107); Glucose 99 mg/dL (74-99); Magnesium 1.8 mg/dL (1.6-2.3); Non-African American GFR(CKD) >90 (>60 ml/min/1.73 sqM); Potassium 3.6 mmol/L (3.5-5.1); Sodium 137 mmol/L (137-145); Total Bilirubin 0.4 mg/dL (0.2-1.3); Total Protein 8.2 g/dL (6.3-8.2)
[2022-10-10 11:41] LABS: Partial Thromboplastin Time 27.3 sec (22.0-30.0); Prothrombin Time 10.4 sec (9.0-12.0)
[2022-10-10] MEDS ORDERED: ACETAMINOPHEN TAB 325 MG TAB PO STA (12:46)
[2022-10-10 13:06] VITALS: BP 110/68; PULSE 89
== END 2022-10-10 13:08 | disposition home or self-care (01) ==
LOC: EC 09:32
DX: U07.1 COVID-19 (principal); I10 Essential (primary) hypertension; M19.90 Unspecified osteoarthritis, unspecified site; F41.9 Anxiety disorder, unspecified; F17.290 Nicotine dependence, other tobacco product, uncomplicated; Z79.899 Other long term (current) drug therapy
CPT/HCPCS: 36415; 93005; 85379; 80053; 83605; 83735; 84484; 85025; 85610; 85730; 87636; 71046; 99285; 96374; 96375; 96361; J1885; J1170